=== PATIENT | female | born 1990 | race Caucasian/White ===

== ENCOUNTER 2023-05-13 00:28 | Emergency (ER) | payer SELFPAY ==
[~2023-05-13] VITALS: Ht 160 cm; Wt 75.0 kg
[~2023-05-13 00:28] MED LIST: RISP0.5T39 PO
[2023-05-13 00:44] VITALS: TEMP 98.3
[2023-05-13] MEDS: PredniSONE 20 MG TABLET PO ONE (01:35)
[2023-05-13] MEDS: HYDROCODONE/ACETAMINOPHEN 5-325 MG TABLET PO ONE (01:35)
[2023-05-13] MEDS: HYDROmorphone HCL 2 MG/ML SYRINGE IM ONE (01:35)
[2023-05-13] MEDS: LORazepam 2 MG/ML VIAL IM ONE (01:38)
[2023-05-13] MEDS: SODIUM CHLORIDE 0.9% 1,000 ML IV ONE (01:48)
[2023-05-13] MEDS: MethylPREDNISolone SOD SUCC 125 MG/2 ML VIAL IVP ONE (01:49)
[2023-05-13] MEDS: MORPHINE SULFATE 2 MG/ML SYRINGE IVP ONE ×2 (01:49→08:31)
[2023-05-13 04:46] LABS: HEMOGLOBIN 12.9 g/dL (12.0-16.0); MEAN CORPUSCULAR HEMOGLOBIN 28.8 pg (26.0-34.0); MEAN CORPUSCULAR HGB CONC 32.2 G/dL (31.0-37.0); MEAN CORPUSCULAR VOLUME 90 fL (80-100); PLATELET COUNT (AUTO) 396 K/uL (150-450); RED BLOOD CELL COUNT(AUTO) 4.47 MIL/uL (4.00-5.20); RED CELL DISTRIBUTION WIDTH 14.3 % (11.5-14.5)
[2023-05-13 05:01] LABS: ANION GAP 8 mmol/L (8-16); CARBON DIOXIDE 29 mmol/L (22-29); CHLORIDE 100 mmol/L (98-107); CREATININE 0.93 mg/dL (0.60-1.30); GLOMERULAR FILTR. RATE CALC > 60 mL/min (>60); GLUCOSE,RANDOM 134 mg/dL (70-110); POTASSIUM 4.3 mmol/L (3.5-5.1); SODIUM SERUM 137 mmol/L (136-145); UREA NITROGEN, BLOOD 10 mg/dL (7-18)
[2023-05-13 05:04] LABS: WHITE BLOOD COUNT (AUTO) 30.9 K/uL (4.5-11.0)
[2023-05-13 05:05] LABS: ALCOHOL, BLOOD (SERUM) < 3 mg/dL (0-10)
[2023-05-13 05:07] LABS: ALANINE AMINOTRANSFERASE 35 U/L (12-78); ALBUMIN 3.3 g/dL (3.4-5.0); ALKALINE PHOSPHATASE 63 U/L (46-116); ASPARTATE AMINOTRANSFERASE 33 U/L (15-37); BILIRUBIN,TOTAL 1.2 mg/dL (0.1-1.0); TOTAL PROTEIN, SERUM 6.9 g/dL (6.4-8.2)
[2023-05-13] MEDS ORDERED: 0.9% SODIUM CHLORIDE 10 ML SYRINGE IVP PRN (05:15)
[2023-05-13 05:23] LABS: BAND NEUTROPHILS % (MANUAL) 9 % (0-5); EOSINOPHILS % (MANUAL) 3 % (1-6); LYMPHOCYTES % (MANUAL) 7 % (22-44); MONOCYTES % (MANUAL) 8 % (2-9); SEGMENTED NEUTROPHILS % 73 % (40-70); TOTAL CELLS COUNTED 100
[2023-05-13 05:37] LABS: INR 1.2 (0.9-1.1); PROTHROMBIN TIME 12.2 SEC (9.4-11.6)
[2023-05-13] MEDS: SODIUM CHLORIDE 0.9% 2,250 ML IV ONE (05:57)
[2023-05-13] MEDS: PIPERACILLIN/TAZO 3.375 GM/D5W 50 ML IV ONE (06:07)
[2023-05-13 06:18] LABS: LACTIC ACID 2.4 mmol/L (0.4-2.0)
[2023-05-13] MEDS ORDERED: SODIUM CHLORIDE 0.9% 100 ML ONE (07:27)
[2023-05-13] MEDS ORDERED: IOHEXOL 350 MG/ML 100 ML VIAL ONE (07:27)
[2023-05-13] MEDS: LORazepam 2 MG/ML VIAL IVP ONE (08:30)
[2023-05-13 09:50] LABS: COVID AG,FIA SOURCE NASAL SWAB
[2023-05-13 10:12] LABS: SARS-COV2 (COVID) ANTIGEN,FIA Negative (Negative)
[2023-05-13 10:17] LABS: HCG,QUANTITATIVE < 1 mIU/mL (0-6)
[2023-05-13 10:19] VITALS: BP 106/64; PULSE 103; RESP 15
== END 2023-05-13 11:24 | disposition short-term general hospital (02) ==
LOC: EMS 00:31
DX: T20.00XA Burn of unspecified degree of head, face, and neck, unspecified site, initial encounter (principal); F20.9 Schizophrenia, unspecified; F31.9 Bipolar disorder, unspecified; F17.210 Nicotine dependence, cigarettes, uncomplicated; F15.10 Other stimulant abuse, uncomplicated
CPT/HCPCS: 99291; 96365; 71045; 96375; 87426; 80053; 83605; 84702; 85025; 85610; 87040; 93005; 84145; 96372; G0480; J1170; J2060; J2270; J2543; J7512; Q9967; J7030; J7050